=== PATIENT | female | born 1985 | race Caucasian/White ===

== ENCOUNTER 2019-01-31 19:41 | Emergency (ER) | payer OTHER ==
[~2019-01-31] VITALS: Ht 180.3 cm; Wt 90.7 kg
[2019-01-31 19:47] VITALS: BP 126/82
[2019-01-31] MEDS: KETOROLAC 30 MG/ML VIAL IVP ONE (20:20)
[2019-01-31] MEDS: NACL 0.9% 1,000 ML IV ONE (20:33)
[2019-01-31 21:45] VITALS: BP 140/92
== END 2019-01-31 21:45 | disposition home or self-care (01) ==
LOC: MED 19:41
DX: J02.9 Acute pharyngitis, unspecified (principal); Z88.1 Allergy status to other antibiotic agents
CPT/HCPCS: 70360; 96374; 99283; J1885; J7030; 99284

== ENCOUNTER 2020-02-14 16:02 | Emergency (ER) | payer OTHER ==
[~2020-02-14] VITALS: Ht 180.3 cm; Wt 90.7 kg
[2020-02-14 16:04] VITALS: BP 125/78
[2020-02-14] MEDS ORDERED: PROMETHAZINE DM 6.25/15MG-5ML ORASYR PO PRN (16:40)
[2020-02-14 17:38] VITALS: BP 125/78
== END 2020-02-14 17:39 | disposition home or self-care (01) ==
LOC: MED 16:02
DX: R05 Cough (principal); Z20.828 Contact with and (suspected) exposure to other viral communicable diseases; Z88.1 Allergy status to other antibiotic agents
CPT/HCPCS: 36600; 71045; 82803; 87426; 93005; 99285; Q0092; U0003

== ENCOUNTER 2020-12-08 12:39 | Emergency (ER) | payer OTHER ==
[~2020-12-08] VITALS: Ht 180.3 cm; Wt 90.7 kg
[2020-12-08 12:58] VITALS: BP 129/86
[2020-12-09 08:08] LABS: HEPATITIS B SURFACE ANTIBODY Reactive (.)
== END 2020-12-08 14:38 | disposition home or self-care (01) ==
LOC: MED 12:39
DX: Z00.00 Encounter for general adult medical examination without abnormal findings (principal); Z88.1 Allergy status to other antibiotic agents
CPT/HCPCS: 36415; 86706; 86762; 86765; 86787; 90471; 90715; 99283